=== PATIENT | male | born 1980 | race African-American/Black ===

== ENCOUNTER 2023-09-26 14:37 | Emergency (ER) | payer OTHER ==
[~2023-09-26] VITALS: Ht 170.2 cm; Wt 70.8 kg
[2023-09-26] MEDS ORDERED: 0.9 % SODIUM CHLORIDE 500 ML IV SCH (17:45)
[2023-09-26 18:04] LABS: URINE APPEARANCE Clear; URINE BILIRRUBIN Negative (NEGATIVE); URINE BLOOD Negative; URINE COLOR Yellow; URINE GLUCOSE Negative (NEGATIVE); URINE LEUKOCYTE Negative; URINE NITRATE Negative; URINE PROTEIN Negative (NEGATIVE)
[2023-09-26 18:05] LABS: URINE BACTERIA 17.6 uL (0.0-1933); URINE EPITHELIAL CELLS 3.3 uL (0.0-38.8); URINE RBC 2.4 uL (0.0-20.8); URINE WBC 11.5 uL (0.0-23.2)
[2023-09-26 18:08] LABS: HEMATOCRIT 45.7 % (39.0-48.0); HEMOGLOBIN 15.8 g/dL (13-16.00); MEAN CORPUSCULAR HEMOGLOBIN 31.2 pg (27.00-32.0); MEAN CORPUSCULAR HGB CONC 34.6 g/dl (32.0-36.0); PLATELET COUNT 237 K/uL (150-450); RED BLOOD COUNT 5.08 M/uL (4.00-6.00); RED CELL DISTRIBUTION WIDTH 13.5 % (11.5-14.5)
[2023-09-26 18:19] LABS: ALBUMIN 4.3 gm/dL (3.4-5.0); BILIRUBIN TOTAL 1.28 mg/dL (0.3-1.2); CALCIUM 9.5 mg/dL (8.5-10.1); CREATININE SERUM 1.32 mg/dL (0.70-1.30); GFR 59.2; GLOBULINA 3.9 G/DL (2.4-3.5); POTASSIUM 3.97 mEq/L (3.5-5.1); TOTAL PROTEIN 8.2 gm/dL (6.4-8.2)
== END 2023-09-26 22:29 | disposition home or self-care (01) ==
LOC: ER 14:37
PROVIDERS: Emergency Medicine
DX: R55 Syncope and collapse (principal)